=== PATIENT | female | born 1970 | race Native Hawaiian/Other Pacific Islander ===

== ENCOUNTER 2016-08-20 15:04 | Emergency (ER) | payer OTHER ==
[~2016-08-20] VITALS: Ht 175.3 cm; Wt 117.0 kg
[2016-08-20 15:22] VITALS: TEMP 98.2
[2016-08-20 15:50] VITALS: BP 165/90
== END 2016-08-20 15:51 | disposition home or self-care (01) ==
LOC: ED 15:04
DX: K08.89 Other specified disorders of teeth and supporting structures (principal); K02.9 Dental caries, unspecified
CPT/HCPCS: 99282

== ENCOUNTER 2016-11-11 16:31 | Emergency (ER) | payer OTHER ==
[~2016-11-11] VITALS: Ht 175.3 cm; Wt 117.9 kg
[2016-11-11 18:42] VITALS: BP 158/94; TEMP 98.3
== END 2016-11-11 18:44 | disposition home or self-care (01) ==
LOC: ED 16:31
DX: M48.06 Spinal stenosis, lumbar region (principal); S39.012A Strain of muscle, fascia and tendon of lower back, initial encounter; W18.39XA Other fall on same level, initial encounter; Y93.89 Activity, other specified; Y92.89 Other specified places as the place of occurrence of the external cause; Y99.8 Other external cause status
CPT/HCPCS: 99283

== ENCOUNTER 2019-03-15 17:40 | Emergency (ER) | payer OTHER ==
[~2019-03-15] VITALS: Ht 172.7 cm; Wt 131.5 kg
[2019-03-15 18:35] VITALS: BP 149/88; TEMP 98.1
== END 2019-03-15 18:35 | disposition home or self-care (01) ==
LOC: ED 17:40
DX: G43.909 Migraine, unspecified, not intractable, without status migrainosus (principal)
CPT/HCPCS: 96372; 99283; J1885; J2405

== ENCOUNTER 2022-04-02 11:42 | Outpatient (CLI) | payer OTHER ==
[2022-04-02 12:05] LABS: POTASSIUM 2.7 mmol/L (3.6-5.2)
== END 2022-04-02 19:40 | disposition home or self-care (01) ==
LOC: LAB 11:42
PROVIDERS: ATTEND Family Medicine
DX: E87.6 Hypokalemia (principal)
CPT/HCPCS: 80048

== ENCOUNTER 2022-04-21 16:40 | Emergency (ER) | payer OTHER ==
[~2022-04-21] VITALS: Ht 172.7 cm; Wt 122.5 kg
[2022-04-21 16:50] VITALS: TEMP 98.3
[2022-04-21 17:41] LABS: PLATELET COUNT 225 K/uL (152-353)
[2022-04-21 17:45] LABS: POTASSIUM 2.8 mmol/L (3.6-5.2)
[2022-04-21 18:23] VITALS: BP 142/96
== END 2022-04-21 18:23 | disposition home or self-care (01) ==
LOC: ED 16:40
PROVIDERS: Emergency Medicine
DX: G43.909 Migraine, unspecified, not intractable, without status migrainosus (principal); E87.6 Hypokalemia; Z79.899 Other long term (current) drug therapy
CPT/HCPCS: 36416; 80048; 80307; 85027; 96372; 99283; J1170; J2405